=== PATIENT | female | born 1980 | race Caucasian/White ===

== ENCOUNTER 2025-04-20 13:59 | Emergency (ER) | payer OTHER, SELFPAY ==
--- OUTSIDE RECORDS SUMMARY | 2020-10-31 05:13 | XMS_ITS | Continuity of Care Document ---
Author Organization [facility] Address [address] [place] [address] Phone Care Team Providers Care Site Medical Director Name Role Phone Jay Mcrae MD Unavailable Unavailable Advance Directives Directive Yes / No Effective Date File Name No Information Encounters Encounter Description Practice Location Reason(s) For Visit Diagnoses Date Provider Providers Copied on Encounter [facility] , [address], [place], [place], [id number], tel:[phone] [employer] [place] No Information Thor Thompson. [address], [place], [place], [id number], . tel:[phone] Family History Family Member Type Diagnosis Age At Onset No Information Payers Payer name Insurance type Covered green party ID Authoriza tion(s) No Information Social History Type Description Quantity Date Captured Comments Sex Female Smoking Status No Information Sexual Orientation Straight or heterosexual Sep Chief Complaint And Reason For Visit No Information Reason For Referral Reason For Referral No Information History Of Present Illness Encounter Date Complaint History Of Prese nt Illness No Information Functional Status Date Functional Assessmen t No Information Instructions Date Instruction Additional Infor mation No Information Assessments Type Assessment Date No Information Patient Care Teams Name Effective Dates (start - stop) Status Members No Information
--- NOTE | 2025-04-20 14:04 | ED.EAR ---
HPI - Ear Problem General Chief complaint: Ear Stated complaint: LT Ear Pain Time Seen by Provider: 04/20/25 14:16 Source: patient and RN notes reviewed Mode of arrival: ambulatory Limitations: no limitations History of Present Illness HPI Narrative: 44-year-old female presents to the [facility] with left posterior swelling, tenderness. States it occurred on Saturday, got better. Returned with more tenderness Tried cleaning out her ears with Q-tips last night. Has taken sink and mineral ear drops. Treatment prior to arrival: eardrops Related Data Home Medications ?Medication ?Instructions ?Recorded ?Confirmed ?Last Taken ?Type buspirone 5 mg tablet mg 04/20/25 Unknown History montelukast 10 mg tablet mg 04/20/25 Unknown History Allergies Allergy/AdvReac Type Severity Reaction Status Date / Time codeine Allergy Mild Hives Verified 04/20/25 14:21 escitalopram (From Lexapro) AdvReac Intermediate Nausea and Verified 04/20/25 14:21 Vomiting Penicillins AdvReac Mild yeast Verified 04/20/25 14:21 infection Review of Systems Review of Systems: All systems reviewed & are unremarkable except as noted in HPI and below Constitutional: Constitutional: Reports no additional constitutional complaints ENT: Reports as per HPI Cardiovascular: Cardiovascular: Reports no additional cardiovascular complaints, Denies chest pain and Denies dyspnea Respiratory: Respiratory: Reports no additional respiratory complaints, Denies chest congestion, Denies cough and Denies dyspnea Musculoskeletal: Musculoskeletal: Reports no additional musculoskeletal complaints Integumentary/Breasts: Skin/Breast: Reports system reviewed and no additional complaints, except as docu PMFSH Comments At the time of my signature, I reviewed and agree with the nursing past medical, surgical, social, and family history. There is no relevant family history pertinent to the patient complaint. Exam Const: General: cooperative, healthy appearing, comfortable, no acute distress, well developed, alert and well nourished Nutritional Appearance: well nourished Orientation/consciousness: patient oriented x3 Limitations: no limitations HENMT: Head: normal to inspection Ears: hearing grossly normal bilaterally, TM's normal bilaterally and Abnormal EAC present erythema bilateral and edema; no foreign body and no otic discharge Face/Nose/Sinus: Normal external nose present and No nasal polyps present Mouth: Yes Normal oral and palatal mucosa present, Yes lip normal, Yes tongue normal and Yes moist mucous membranes Throat: posterior oropharynx normal, uvula midline and no uvular edema Other: Left posterior ear swollen lymph node, palpable, movable Eyes: General: appearance normal, both eyes and all related structures Alignment and Position: alignment normal Neck: Neck: normal visual inspection, full ROM, no lymphadenopathy and no meningeal signs Chest: Chest palpation & inspection: normal inspection of the chest Resp: Effort & Inspection: normal respiratory effort and able to speak in complete sentences Auscultation: clear to auscultation bilaterally, no crackles, no rales, no rhonchi and no wheezes Cardio: Rate: regular rate Skin: General skin exam: normal color and no rashes or lesions noted Neuro: General: patient oriented x3, gait normal, moves all extremities and no meningeal signs Cognition (Neuro): normal cognition Speech: normal speech Gait exam (Neuro): Normal gait present Extrem: General: normal to inspection, full ROM, capillary refill normal and normal gait Psych: Appearance: grossly normal and well kempt Mental Status: mental status grossly normal Speech and movement: Normal speech and movement present and Clear speech present Affect: normal affect Attitude: cooperative Course Course Level of Care: Express Care Visit Vital Signs Vital signs: Vital Signs Temperature 97.9 F 04/20/25 14:10 Pulse Rate 87 04/20/25 14:10 Respiratory Rate 18 04/20/25 14:10 Blood Pressure 120/83 04/20/25 14:10 Pulse Oximetry 100 04/20/25 14:10 Oxygen Delivery Room Air 04/20/25 14:10 Temperature 97.9 F 04/20/25 14:10 Pulse Rate 87 04/20/25 14:10 Respiratory Rate 18 04/20/25 14:10 Blood Pressure 120/83 04/20/25 14:10 Pulse Oximetry 100 04/20/25 14:10 Oxygen Delivery Room Air 04/20/25 14:10 Reviewed Medical Decision Making MDM Narrative Medical decision making narrative: Patient sitting in exam room. Patient is nontoxic, vitals stable. Patient with a swollen lymph node posterior left ear. Concerning findings of significant abrasion and swelling to the left ear canal. Patient is appropriate for outpatient treatment with close follow-up Discharge instructions reviewed with patient, as well as provided in writing per nursing staff. The instructions also include specific and strict return/GO TO THE ER as well as f/u information. All questions have been answered, and the patient deny any further questions with discharge and discharge plan. Some parts of this dictation were generated by voice recognition software and may contain typographical and/or grammatical inaccuracies. Medical Records Medical records reviewed: Yes I reviewed the external patient's medical records. Vital Signs Vital Signs: Vital Signs Temperature 97.9 F 04/20/25 14:10 Pulse Rate 87 04/20/25 14:10 Respiratory Rate 18 04/20/25 14:10 Blood Pressure 120/83 04/20/25 14:10 Pulse Oximetry 100 04/20/25 14:10 Oxygen Delivery Room Air 04/20/25 14:10 Temperature 97.9 F 04/20/25 14:10 Pulse Rate 87 04/20/25 14:10 Respiratory Rate 18 04/20/25 14:10 Blood Pressure 120/83 04/20/25 14:10 Pulse Oximetry 100 04/20/25 14:10 Oxygen Delivery Room Air 04/20/25 14:10 Reviewed Lab Data Lab results reviewed: Yes I reviewed the patient's lab results. Labs: Reviewed Critical Care Time Critical Care Time Critical Care Time: No Discharge Plan Discharge Clinical Impression: Lymphadenopathy, postauricular Abrasion of ear canal Qualifiers: Encounter type: initial encounter Laterality: left Qualified Code(s): S00.412A - Abrasion of left ear, initial encounter Patient Disposition: Home Condition: Stable Instructions: Earache (ED) Additional Instructions: Take Motrin alternating with Tylenol as needed for pain per package instructions. You can alternate every 4 hours Apply warm compresses to the area. If your lymph node gets larger or does not go way in 3-4 days please follow-up with primary care provider Use ear drops as prescribed Do not put anything in your ear especially Q-tips. Patient Language: Kazakh Prescriptions: New wjtedite-jtgydtavu-VE 3.5-10,000-1 mg/mL-unit/mL-% drops,suspension 4 drp LEFT EAR TID 7 Days Qty: 10 0RF No Action buspirone 5 mg tablet montelukast 10 mg tablet Follow-up/Referrals: Marii Babin, RN [Primary Care Provider, Nursing] Stand Alone Forms: Work/School Release IP Time of Disposition: 14:29
[2025-04-20 14:10] VITALS: BP 120/83; PULSE 87; RESP 18; TEMP 36.6; O2SAT 100
--- OUTSIDE RECORDS SUMMARY | 2025-04-20 14:55 | XMS_ITS | Clinical Summary ---
Author Organization [facility] Address [address] [place] [address] Care Team Providers Care Preschool Aide Name Role Phone Unavailable Primary Care Provider Unavailabl e Source Comments [facility],non-owned Affiliates and Associated Physician Practices is amultiple site organization consisting of ambulatory clinics and hospital sitesin [place], [place], [place] and [place]. This disclosure is being madepursuant to the Care Everywhere program and may not contain all information available regarding this patient. Last updated 18.[facility] Allergies Active Allergy Reactions Criticality Noted Date Comments Codeine Urticaria Medium 10/21/2017 Escitalopram GI Discomfort 10/21/2017 Penicillins Other 10/21/2017 Always gets a yeast infection. Medications * Be aware that medications may not be up to date on this document. Alwaysverify current medications with the patient. U[place]en-QmLlt-Cs Po-FA-[place] 3 (TAMICA-C DHA PO) Active cetirizine (ZYRTEC ALLERGY) 10 MG gel capsule Take 10 mg by mouth once daily Active omeprazole (PRILOSEC) 20 MG capsule Take 20 mg by mouth daily before breakfast Active nitrofurantoin monohyd macro crystals (MACROBID) 100 MG capsule Take 1 capsule by mouth 2 times daily with morning and evening meal 14 capsule 8 Active Active Problems Problem Noted Date Diagnosed Date NEGATIVE PAST MEDICAL HISTORY - SEE PROBLEM LIST Social History Tobacco Use Types Packs/Day Years Used Date Smoking Tobacco: Every Day Smokeless Tobacco: Current Alcohol Use Standard Drinks/Week Comments Yes 0 (1 standard drink = 0.6 oz pur e alcohol) occasionally Comments Unknown Sex and Gender Information Value Date Recorded Sex Assigned at Not on file Legal Sex Female 4:45 PM CDT Gender Identity Not on file Sexual Orientation Not on file Last Filed Vital Signs Vital Sign Reading Time Taken Comments Blood Pressure 108/60 01/27/2018 6:34 PM CDT Pulse 67 01/27/2018 6:34 PM CDT Temperature 36.7 C (98.1 F) 01/27/2018 6:34 PM CDT Respiratory Rate 18 01/27/2018 6:34 PM CDT Oxygen Saturation 98% 01/27/2018 6:34 PM CDT Inhaled Oxygen Concentration - - Weight 63.5 kg (140 lb) 01/27/2018 6:34 PM CDT Height 162.6 cm (5' 4) 01/27/2018 6:34 PM CDT Body Mass Index 24.03 01/27/2018 6:34 PM CDT Plan of Treatment Health Maintenance Due Date Last Done Comments LIPID TESTING 1980 MAMMOGRAM 1980 HIV SCREENING 1995 HEPATITIS C SCREENING 05/04/1998 DTAP/TDAP/TD VACCINES (1 - Tdap) 1999 HEPATITIS B VACCINE (1 of 3 - 19+ 3-dose series) 1999 PNEUMOCOCCAL VACCINE (1 of 2 - PCV) 1999 PAP SMEAR 2001 HPV VACCINE (1 - 3-dose SCDM series) 2007 DEPRESSION SCREENING 07/15/2024 COVID-19 VACCINE (1 - 2023-2 5 season) 2025 INFLUENZA VACCINE (#1) 2025 ZOSTER VACCINE (1 of 2) 2030 HIB VACCINE Aged Out No longer eligi ble based on patient's age to complete this topic MENINGOCOCCAL (Group B) VACC INE SHARED DECISION-MAKING Aged Out No longer eligibl e based on patient's age to complete this topic MENINGOCOCCAL GROUPS A/C/Y/W VACCINE Aged Out No longer eligible b ased on patient's age to complete this topic Insurance [employer] [address] [facility] Address: [address] [address] [place] [address]
--- OUTSIDE RECORDS SUMMARY | 2025-04-20 14:55 | XMS_ITS | Encounter Summary ---
Author Organization [facility] Address [address] [place] [place] [address] Care Team Providers Care Application Development Liaison Name Role Phone Unavailable Primary Care Provider Unavailabl e Encounter Details Date Type Department Care Team (Late st Contact Info) Description 04/24/[address] [facility] - DermPath Lab [address] [place] [id number] Jorge Arnold [place] [address] Social History Tobacco Use Types Packs/Day Years [...] on file Sexual Orientation Not on file documented as of this encounter Plan of Treatment Not on file documented as of this encounter Procedures Procedure Name Priority Date/Time Associated Diagnosis Comments DERMATOPATHOLOGY Routine 04/22/2024 12:0 0 AM CDT documented in this encounter Results * DERMATOPATHOLOGY (04/22/2024 12:00 AM CDT) Case Report Dermatopathology Report Case: [id number] Authorizing Provider: Jorge Arnold MD Collected: 04/22/2024 12:00 AM Ordering Location: [facility] - Received: 04/27/2024 06:37 AM DermPath Lab Pathologist: Sharon Escobedo MD Specimens: A) - Skin, left upper lateral back B) - Skin, left upper lateral back medially to A 4:56 PM T DERMATOPATHOLOGY LABORATORY Final Diagnosis Specimen A. SKIN, left upper lateral back: INTRADERMAL MELANOCYTIC NEVUS WITH CONGENITAL FEATURES (D22.9) Specimen B. SKIN, left upper lateral back medially to A: INTRADERMAL MELANOCYTIC NEVUS WITH CONGENITAL FEATURES (D22.9) 4:56 PM T DERMATOPATHOLOGY LABORATORY at 1656 CDT Clinical History R/o dysplastic nevus 4:56 PM T DERMATOPATHOLOGY LABORATORY Gross Description Specimen A: Received is one formalin filled container labeled with the patient's name and designated left upper lateral back. The specimen consists of a shave biopsy measuring 8x6x4 mm. Jar 0. Specimen B: Received is one formalin filled container labeled with the patient's name and designated left upper lateral back medially to A. The specimen consists of a shave biopsy measuring 6x6x2 mm. Jar 0. 4:56 PM T DERMATOPATHOLOGY LABORATORY Microscopic Description Specimen A. SKIN, left upper lateral back: There are nests of cytologically bland melanocytes within the dermis. Some of these melanocytes are concentrated around blood vessels and adnexal structures. Specimen B. SKIN, left upper lateral back medially to A: There are nests of cytologically bland melanocytes within the dermis. Some of these melanocytes are concentrated around blood vessels and adnexal structures. 4:56 PM T DERMATOPATHOLOGY LABORATORY Disclaimer An external and internal positive and negative controls are appropriate for the histochemical, immunohistochemical and immunofluorescence stain(s) in this case (if any), except where stated explicitly. The performance characteristics of the stain(s) cited in this report were developed and its performance characteristic determined by the Dermatopathology Laboratory at [facility], directed by Dr. Chet Armstrong. These tests need not be, and therefore are not, approved by the [place] Food and Drug Administration. The tests are used for clinical purposes. Billing Codes Specimen Charges Stain Charges 01024 83121 1 1 4:56 PM CDT DERMATOPATHOLOGY LABORATORY Embedded Images 4:56 PM CDT DERMATOPATHOLOGY LABORATORY Pathology/Cytology TISSUE SPECIMEN FROM SKIN / Unknown 04/22/2024 04/27/2024 6:37 AM CDT Miscellaneous samples (specimen) TISSUE SPECIMEN FROM SKIN / Unknown 04/22/2024 04/27/2024 6:37 AM CDT us Jorge Arnold MD LAB - PATHOLOGY/CYTOLOGY ORD ERABLES Final Result DERMATOPATHOLOGY LABORATORY [facility] - Department of Dermatology [facility] [address] [place] [address], [address] [phone] documented in this encounter Visit Diagnoses Not on filedocumented in this encounter
--- OUTSIDE RECORDS SUMMARY | 2025-04-20 14:55 | XMS_ITS | Clinical Summary ---
Author Organization [facility] Address [address] [place] [address] Care Team Providers Care Stick Roller Name Role Phone Kavitha Babin Primary Care Provider [phone] Allergies Active Allergy Reactions Criticality Noted Date Comments Codeine Itching,Nausea and Vomiting Low 03/08/2014 Escitalopram Oxalate Nausea and Vomiting,Dizziness Low 10/03/2017 Penicillins Other (See Comments) 11/05/2016 Yeast infections Medications omeprazole (PriLOSEC) 10 mg Capsule, Delayed Release(E.C.) Take 10 mg by mouth daily. Active cetirizine (ZyrTEC) 10 mg tablet Take 10 mg by mouth daily. Active busPIRone (BUSPAR) 5 mg tabletIndication s:Anxiety state Take 1 Tablet (5 mg) by mouth 2 times daily. 60 Tablet 1 01/07/2025 3:00 PM CDT 5 Active montelukast (SINGULAIR) 10 mg tabletIndication s:Fragrance hypersensitivity ,Seasonal allergic rhinitis, unspecified trigger Take 1 Tablet (10 mg) by mouth daily at bedtime. 100 Tablet 3 03/29/2025 2:00 PM CDT 5 Active dextrose (glucose) 2 gram Tablet, ChewableIndicati ons:Hypoglycemia Take 2 Grams by mouth 1 time daily as needed for Other (See Comment) (hypoglycemia). 30 Tablet 5 Active neomycin-polymyx in B-hydrocortisone (CORTISPORIN OTIC) 3.5-10,000-1 mg/mL-unit/mL-% otic suspension Administer 4 Drops in left ear 3 times daily for 7 days. 10 mL 10/0705/07/20 25 Active Active Problems Problem Noted Date Diagnosed Date Fragrance hypersensitivity 03/29/2025 Seasonal allergic rhinitis 03/29/2025 Hypoglycemia 03/29/2025 Fatigue 10/03/2017 Vaginal itching 10/03/2017 Cigarette dependence 11/05/2016 Encounters Date Type Department Care Team Description 04/09/[address] [facility] Internal Medicine [facility] [address] [place] [address] Provider, Abstract 03/29/2025 8:20 AM CDT Office Visit [facility] [address] [place] [id number] Kavitha Babin DO Fragrance hypersensitivity (Primary Dx); Seasonal allergic rhinitis, unspecified trigger; Hypoglycemia; Screening mammogram, encounter for 02/16/2025 External Device Data [facility] Provider, Abstract 01/27/2025 External Device Data [facility] Provider, Abstract 01/26/2025 External Device Data [facility] Provider, Abstract from Last 3 Months Immunizations Immunization Administration Dates Next Due (ADACEL/BOOSTRIX)(10 YR UP) TDAP VACCINE, 0.5ML, IM 12/16/2023 Skin Test TB 05/28/2023 Family History Medical History Relation Name Comments Other Father not in contact. Breast Cancer Maternal Aunt 5 mother sist ers, Diabetes Maternal Aunt Pancreatic Cancer Maternal Grandfather Other Maternal Grandmother Karely Erik Cancer Maternal Uncle throat cancer Diabetes Maternal Uncle Cancer Mother Bing Wild Melanoma on her face that was removed Diabetes Mother Bing Monahan Heart Disease Mother Bing Wild Hypertension Mother Bing Wild Other Mother Bing Wild pituitary tumor Other Paternal Aunt guide delegate related ca ncer - uterine or ovarian Relation Name Status Comments Father Alive Maternal Aunt Maternal Grandfather Maternal Grandmother Karely Ewing Maternal Uncle Mother Bing Wild Alive Paternal Aunt Social History Tobacco Use Types Packs/Day Years Used Date Smoking Tobacco: Every Day Cigarettes 0.8 31.8 Started: 07/15/1993 Smokeless Tobacco: Never Tobacco Cessation:Ready to Q uit: Not Asked; Counseling Given: Not Answered Alcohol Use Standard Drinks/Week Comments Yes 0 (1 standard drink = 0.6 oz pur e alcohol) 3-4 drinks about twice a month Comments No Sex and Gender Information Value Date Recorded Sex Assigned at Female 05/03/2023 12:14 PM CDT Legal Sex Female 12:38 PM CDT Gender Identity Female 05/03/2023 12:14 PM CDT Sexual Orientation Straight 05/03/2023 12 :14 PM CDT Occupation Industry Job Start Date Job End Date Not on file Not on file Not on file Not on file Last Filed Vital Signs Vital Sign Reading Time Taken Comments Blood Pressure 116/84 03/29/2025 8:26 AM CDT Pulse 84 03/29/2025 8:26 AM CDT Temperature 36.4 C (97.6 F) 03/29/2025 8:26 AM CDT Respiratory Rate 14 03/29/2025 8:26 AM CDT Oxygen Saturation 98% 03/29/2025 8:26 AM CDT Inhaled Oxygen Concentration - - Weight 61.2 kg (135 lb) 03/29/2025 8:26 AM CDT Height 162.6 cm (5' 4) 03/29/2025 8:26 AM CDT Body Mass Index 23.17 03/29/2025 8:26 AM CDT Plan of Treatment Upcoming Encounters Date Type Department Care Team (Late st Contact Info) Description 01/18/2026 2:40 PM CDT Office Visit [facility] Internal Medicine - [facility] [address] [place] [address] [place] [address] [place] [address] Health Maintenance Due Date Last Done Comments HEPATITIS B VACCINES (1 of 3 - 19+ 3-dose series) 1999 HPV VACCINES (1 - 3-dose SCD M series) 2007 BREAST CANCER SCREENING 2020 PAP SMEAR 10/18/2024 10/18/2021, 09/13, 07/24/2016, Additional history exists INFLUENZA VACCINE (#1) 2025 CERVICAL CANCER SCREENING 10/18/2026 HPV/Cotest (21-29) 10/18/2026 10/18/2021, 0 10/03/2017, 07/24/2016, Additional history exists HPV/Cotest (30-65) 10/18/2026 10/18/2021, 0 10/03/2017, 07/24/2016, Additional history exists DTAP/TDAP/TD VACCINES (2 - T d or Tdap) 12/15/2033 12/16/2023 Preventative Visit- Commercial Completed 0 01/07/2025, 12/16/2023, 10/18/2021, Additional history exists Procedures Procedure Name Priority Date/Time Associated Diagnosis Comments CERV/VAG CYTO AGE BASED SCREEN PAP W CT/NG Routine 10/18/2021 12:00 AM CDT Well woman exam with routine gynecological exam Screen for STD (sexually transmitted disease) from Last 3 Months or Most Recently Relevant to Health Maintenance Results * CERV/VAG CYTO AGE BASED SCREEN PAP W CT/NG (10/18/2021 12:00 AM CDT) COMMENT (PAP): [facility] Comment: This order for age-based cervical cancer and STI screening follows ACOG guidelines(PB 168, 140, KZZ375). See individual assays for performing site location. CLINICAL INFORMATION [facility] Comment:SCREENING LAST MENSTRUAL PERIOD [facility] Comment:INFORMATION NOT PROV IDED PREV PAP: [facility] Comment:INFORMATION NOT PROV IDED PREV BX: [facility] Comment:INFORMATION NOT PROV IDED SOURCE [facility] Comment:Endocervix ADEQUACY: [facility] Comment: Satisfactory for evaluation. Endocervical/transformation zone component present. Age and/or menstrual status not provided PAP INTERP [facility] Comment:Negative for intraep ithelial lesion or malignancy. COMMENT (PAP TEST) [facility] Comment: This Pap test has been evaluated with computer assisted technology. HYDRAULIC PRESS SERVICER: [facility] Comment: TMKWHITNEY(ASCP) CT screening location: [place] [address] [place] [address] EXPLANATORY NOTE [facility] Comment: EXPLANATORY NOTE: The Pap is a screening test for cervical cancer. It is not a diagnostic test and is subject to false negative and false positive results. It is most reliable when a satisfactory sample, regularly obtained, is submitted with relevant clinical findings and history, and when the Pap result is evaluated along with historic and current clinical information. HPV E6/E7 Not Detected Not Detected [facility] Comment: Methodology: Community Administrator-Mediated Amplification This assay detects E6/E7 viral messenger RNA (mRNA) from 14 high-risk HPV types (16,18,31,33,35,39,45,51,52,56,58,59,66,68). The analytical performance characteristics of this assay have been determined by [facility]. The modifications have not been cleared or approved by the FDA. This assay has been validated pursuant to the CLIA regulations and is used for clinical purposes. For additional information, please refer to http://[employer]/faq/WXG583m4 (This link if provided for information/ educational purposes only.) C TRAC RNA NOT DETECTED NOT DETECTED [facility] N.GONORRHOEAE RNA, TMA NOT DETECTED NOT DETECTED [facility] COMMENT INFECTIOUS DISEASE [facility] Comment: The analytical performance characteristics of this assay, when used to test SurePath(TM) specimens have been determined by [facility]. The modifications have not been cleared or approved by the FDA. This assay has been validated pursuant to the CLIA regulations and is used for clinical purposes. For additional information, please refer to [email or web address] (This link is being provided for information/ educational purposes only.) Test Performed at: [facility] [address] [place] [address] Nitish Guerrero D.O., MPH SL Genital SWAB OF ENDOCERVIX / Unknown 10/18/2021 10/19/2021 5:14 AM CDT Suzi Bhatia MD PATHOLOGY/CYTOLOGY ORDERABL ES Final Result [facility] [address] [place] [address] from Last 3 Months or Most Recently Relevant to Health Maintenance Insurance [facility] [id number] RX [employer] Member Subscriber Plan / Payer (Ef fective 2023-Present) Name:Esme Benoit Relation to Subscriber:Self Name:Esme Benoit Payer ID:Not on file Type:RX Commercial Address: [address] Care Teams Stick Roller Relationship Specialty Start [place] [address] [address] [place] [id number] PCP - General Internal Medicine 07/14/20
== END 2025-04-20 14:31 | disposition home or self-care (01) ==
PROVIDERS: Emergency Provider Nurse Practitioner
DX: R59.0 Localized enlarged lymph nodes (principal); S00.412A Abrasion of left ear, initial encounter; Z79.899 Other long term (current) drug therapy; X58.XXXA Exposure to other specified factors, initial encounter
CPT/HCPCS: 99203; G0463